=== PATIENT | female | born 1985 ===

== ENCOUNTER 2024-07-04 00:08 | Inpatient (IN) | payer OTHER ==
[2024-07-04] MEDS ORDERED: Misoprostol 25 MCG (1/4 of 100 MCG) Tab VAG PRN ×2 (00:36→01:00)
[2024-07-04] MEDS ORDERED: Butorphanol 2 MG/ML SDV IVPUSH PRN (00:36)
[2024-07-04] MEDS ORDERED: Terbutaline 1 MG/ML SDV SUBCUT PRN (00:36)
[2024-07-04] MEDS ORDERED: Sodium Chloride 0.9% 20 ML SDV IV PRN (00:36)
[2024-07-04] MEDS ORDERED: Misoprostol 200 MCG Tab RECTAL PRN ×2 (00:36→11:30)
[2024-07-04] MEDS ORDERED: Tranexamic Acid in NACL,ISO-OS 1,000 MG in Premix Bag 1 BAG IV PRN (00:36)
[2024-07-04] MEDS ORDERED: Ondansetron 4 MG/2 ML SDV IVPUSH PRN (00:36)
[2024-07-04] MEDS ORDERED: Carboprost Tromethamine 250 MCG/1 mL Vial IM PRN (00:36)
[2024-07-04] MEDS ORDERED: Lidocaine 1% 50 ML MDV INJECT PRN (00:36)
[2024-07-04] MEDS ORDERED: Sodium Chloride 0.9% 10 ML Syringe FLUSH PRN (00:36)
[2024-07-04] MEDS ORDERED: Sodium Chloride 0.9% 2.5 ML Syringe FLUSH PRN (00:36)
[2024-07-04] MEDS ORDERED: Methylergonovine 0.2 MG/1 ML Amp IM PRN (00:36)
[2024-07-04] MEDS ORDERED: Misoprostol 200 MCG Tab PO PRN (00:36)
[2024-07-04] MEDS ORDERED: Water For Irrigation,Sterile 1,000 ML Container IRR PRN (00:36)
[2024-07-04] MEDS ORDERED: Oxytocin/0.9 % Sodium Chloride 30 UNIT/500 ML BAG IV SCH (00:45)
[2024-07-04 01:42] LABS: HEMATOCRIT 37.5 % (37.0-47.0); HEMOGLOBIN 12.7 g/dL (12.0-16.0); MEAN CORPUSCULAR HEMOGLOBIN 31.7 pg (28.0-32.0); MEAN CORPUSCULAR HGB CONC 33.9 g/dL (32.0-36.0); MEAN CORPUSCULAR VOLUME 93.5 fL (83.0-99.0); MEAN PLATELET VOLUME 12.6 fL (9.4-12.3); PLATELET COUNT,PLT 178 K/uL (150-400); RED BLOOD CELL COUNT 4.01 M/uL (4.10-5.30)
[2024-07-04] MEDS: Lactated Ringers 1,000 ML IV SCH (01:43)
[2024-07-04] MEDS: Ampicillin 2 GM in Sodium Chloride 0.9% 100 ML IV ONE (01:44)
[2024-07-04] MEDS: Oxytocin/0.9 % Sodium Chloride 30 UNIT/500 ML BAG IV SCH (01:57)
[2024-07-04 02:30] LABS: CREATININE,URINE RAND 26.9 mg/dL; PROTEIN CREATININE RATIO,URINE 0.3; PROTEIN,URINE RANDOM 8.1 mg/dL (<11.9)
[2024-07-04 02:34] LABS: A/G RATIO 0.6 (0.9-1.6); ALBUMIN 2.4 g/dL (3.4-5.0); BILIRUBIN TOTAL 0.2 mg/dL (0.2-1.0); CALCIUM 9.1 mg/dL (8.5-10.1); CARBON DIOXIDE,CO2 20.7 mmol/L (21.0-32.0); CREATININE 0.8 mg/dL (0.6-1.0); EST CRCL DRUG DOSING (CG) 72.23 mL/min; PROTEIN TOTAL,TP 6.4 g/dL (6.4-8.2)
[2024-07-04] MEDS: Ampicillin 1 GM in Sodium Chloride 0.9% 50 ML IV SCH (05:40)
[2024-07-04] MEDS ORDERED: Ropivacaine HCl/PF 200 ML ONE (09:05)
[2024-07-04] MEDS ORDERED: Bupivacaine 0.5% 10 ML SDV ONE (09:05)
[2024-07-04] MEDS: Ropivacaine HCl/PF 400 MG in Premix Bag 1 BAG EPIDUR SCH (09:25)
[2024-07-04] MEDS ORDERED: ePHEDrine 50 MG/ML SDV IVPUSH PRN (09:33)
[2024-07-04] MEDS ORDERED: ePHEDrine 50 MG/ML SDV IM PRN (09:34)
[2024-07-04] MEDS ORDERED: Bupivacaine 0.5% 10 ML SDV INJECT ONE (09:34)
[2024-07-04] MEDS ORDERED: dexmedeTOMIDine HCl 200 MCG/2 ML SDV EPIDUR SCH (09:45)
[2024-07-04] MEDS: Phenylephrine HCl In 0.9% NaCl 1 MG/10 ML Syringe ONE (10:03)
[2024-07-04] MEDS: Phenylephrine HCl In 0.9% NaCl 1 MG/10 ML Syringe IVPUSH PRN (10:36)
[2024-07-04] MEDS ORDERED: oxyCODONE 5 MG Tab PO PRN (11:30)
[2024-07-04 12:36] LABS: PH,UMBILICAL ARTERIAL 7.302 (7.18-7.38); PH,UMBILICAL VENOUS 7.286 (7.25-7.45)
[2024-07-04] MEDS: Docusate Sodium 100 MG Cap PO PRN (12:49)
[2024-07-04] MEDS: Ibuprofen 800 MG Tab PO PRN (12:49)
[2024-07-04] MEDS: Lanolin 100% Cream 7 GM Tube TOP PRN (12:49)
[2024-07-04] MEDS: Acetaminophen 500 MG Tab PO PRN (12:49)
[2024-07-04] MEDS: Witch Hazel Medicated Pads 40/Jar TOP PRN (12:50)
[2024-07-04] MEDS: Benzocaine/Menthol 20%-0.5% Spray 78 GM Cannister TOP PRN (12:50)
[2024-07-04] MEDS: Ondansetron 4 MG/2 ML SDV IVPUSH ONE (14:08)
[2024-07-05] MEDS: Levothyroxine 150 MCG Tab PO SCH (06:30)
[2024-07-05 06:39] LABS: HEMOGLOBIN 12.5 g/dL (12.0-16.0)
[2024-07-05] MEDS ORDERED: Prenatal Multivitamin with Calcium/Folic Acid/Iron Tab PO SCH (09:00)
== END 2024-07-05 14:42 | disposition still patient (30) | DRG 807 ==
LOC: MW.OB 00:08 → OBSVTOIN 11:30 → MW.OB 15:36
PROVIDERS: ADMIT Obstetrics & Gynecology; ATTEND Obstetrics & Gynecology
PROC: 10E0XZZ Delivery of Products of Conception, External Approach (ICD-10-PCS; principal; 2024-07-04)
PROC: 0KQM0ZZ Repair Perineum Muscle, Open Approach (ICD-10-PCS; 2024-07-04)
PROC: 3E033VJ Introduction of Other Hormone into Peripheral Vein, Percutaneous Approach (ICD-10-PCS; 2024-07-04)
PROC: 10907ZC Drainage of Amniotic Fluid, Therapeutic from Products of Conception, Via Natural or Artificial Opening (ICD-10-PCS; 2024-07-04)
DX: O99.824 Streptococcus B carrier state complicating childbirth (principal); Z37.0 Single live birth; O99.284 Endocrine, nutritional and metabolic diseases complicating childbirth; E03.9 Hypothyroidism, unspecified; O16.4 Unspecified maternal hypertension, complicating childbirth; O70.1 Second degree perineal laceration during delivery; Z3A.39 39 weeks gestation of pregnancy
CPT/HCPCS: 01967; 36415; 51702; 59025; 59409; 80053; 82570; 82803; 83615; 84156; 85014; 85018; 85027; 86592; 86850; 86900; 86901; A9270-GY; J0290; J0665; J2371; J2405; J2590; J2795; J3490; J7120